=== PATIENT | female | born 1950 | race Caucasian/White ===

== ENCOUNTER 2021-05-03 08:34 | Outpatient (CLI) | payer MEDICARE | END 2021-05-03 08:35 | disposition home or self-care (01) | LOC: RAD 08:34 | PROVIDERS: ATTEND Internal Medicine Gastroenterology | DX: K59.00 Constipation, unspecified (principal); R10.9 Unspecified abdominal pain | CPT/HCPCS: 74280 ==

== ENCOUNTER 2021-06-04 22:41 | Inpatient (IN) | payer MEDICARE ==
[~2021-06-04 22:41] MED LIST: Iopamidol-370 76% 500 ML 1 ML ONE
[2021-06-04 23:05] LABS: #Eosinphils 0.1 thou/uL (0.0-0.7); #Lymphocytes 2.7 thou/uL (1.20-3.40); #Monocytes 0.6 thou/uL (0.11-0.59); #Neutrophils 3.3 thou/uL (1.40-6.50); %Basophils 0.4 % (0.0-1.0); %Eosinophils 2.1 % (0.0-10.0); %Lymphocytes 40.1 % (21.0-51.0); %Monocytes 8.7 % (0.0-10.0); %Neutrophils 48.7 % (42.0-75.0); Hemoglobin 12.6 g/dL (12.0-16.0); Mean Corpuscular HGB CONC 34.6 g/dL (32.0-36.0); Mean Corpuscular Hemoglobin 31.1 pg (27.0-31.0); Mean Corpuscular Volume 90.1 fL (78.0-98.0); Platelet Count 217 thou/uL (130-400); RBC Distribution Width 12.4 % (11.5-14.5); Red Blood Cell (RBC) Count 4.05 mill/uL (4.20-5.40); White Blood Cell (WBC) Count 6.8 thou/uL (4.8-10.8)
[2021-06-04 23:19] LABS: ALT (SGPT) 41 U/L (8-55); AST (SGOT) 39 U/L (5-34); Albumin 3.9 g/dL (3.4-4.8); Alkaline Phosphatase 64 U/L (40-110); Anion Gap 15 mmol/L (10-20); BUN (Urea Nitrogen) 15 mg/dL (9.8-20.1); Bilirubin, Total 0.3 mg/dL (0.2-1.2); Calc. Creatinine Clearance 0 mL/min (70-130); Calcium 9.3 mg/dL (7.8-10.44); Carbon Dioxide 23 mmol/L (23-31); Chloride 103 mmol/L (98-107); Glucose 253 mg/dL (80-115); Potassium 4.2 mmol/L (3.5-5.1); Protein, Total 6.9 g/dL (5.8-8.1); Sodium 137 mmol/L (136-145)
[2021-06-04 23:22] LABS: PTT 27.6 sec (22.9-36.1); Prothrombin Time 13.4 sec (12.0-14.7)
[2021-06-05] MEDS ORDERED: Aspirin Chewable 81 MG TAB ONE (00:17)
[2021-06-05 01:30] VITALS: BMI 27.5
[2021-06-05 02:17] LABS: Troponin I Less than 0.010 ng/mL (< 0.028)
[2021-06-05] MEDS ORDERED: Dextrose 5% in Water 1,000 ML IV PRN (03:43)
[2021-06-05] MEDS ORDERED: HumaLOG 300 UNITS/3 ML VIAL SC PRN ×2 (03:43)
[2021-06-05] MEDS ORDERED: Dextrose 50% Abboject 50 ML SYRINGE SLOW IVP PRN (03:43)
[2021-06-05] MEDS ORDERED: Senokot S 8.6-50 MG TAB PO PRN (03:45)
[2021-06-05] MEDS ORDERED: Ondansetron ODT 4 MG TAB PO PRN (03:45)
[2021-06-05] MEDS ORDERED: Acetaminophen 325 MG TAB PO PRN (03:45)
[2021-06-05] MEDS ORDERED: hydrALAZINE 20 MG/ML VIAL SLOW IVP PRN (03:46)
[2021-06-05] MEDS: Sodium Chloride 0.9% 1,000 ML IV SCH ×2 (04:29→16:41)
[2021-06-05 06:34] LABS: Cardiac Risk 6.2 (Less than 4.5)
[2021-06-05 06:47] LABS: Troponin I Less than 0.010 ng/mL (< 0.028)
[2021-06-05] MEDS ORDERED: traMADol HCl 50 MG TAB PO PRN (08:14)
[2021-06-05] MEDS ORDERED: Fluticasone Propionate Nasal Spray 16 gm Bottle NASAL PRN (08:14)
[2021-06-05] MEDS ORDERED: Nitroglycerin 0.4 MG TAB (25 Tab Bottle) SL PRN (08:15)
[2021-06-05] MEDS ORDERED: Glimepiride 4 MG TAB PO SCH (08:45)
[2021-06-05] MEDS ORDERED: Levothyroxine Sodium 100 MCG TAB PO SCH (08:45)
[2021-06-05] MEDS ORDERED: HumaLOG 300 UNITS/3 ML VIAL SC SCH (09:00)
[2021-06-05 09:40] LABS: Bacteria/HPF None Seen HPF (None Seen); Bilirubin Negative (Negative); Blood, Urine Negative (Negative); Clarity Clear (Clear); Glucose, Urine (Dipstick) Normal (Negative); Ketone, Urine Negative (Negative); Leukocyte Negative Leu/uL (Negative); Nitrite Negative (Negative); Protein, Urine (Dipstick) Negative (Neg-Trace); RBC/HPF 0-3 HPF (0-3); Specific Gravity, Urine 1.014 (1.002-1.036); Squamous Epithelial 0-3 HPF (0-3); Urobilinogen Normal mg/dL (Less than 2); WBC/HPF 0-3 HPF (0-3); pH, Urine 5.5 (5.0-9.0)
[2021-06-05 09:44] LABS: Urine Culture Reflex No No
[2021-06-05] MEDS: Loratadine 10 MG TAB PO SCH (10:06)
[2021-06-05] MEDS: Gabapentin 300 MG CAP PO SCH ×3 (10:06→22:11)
[2021-06-05] MEDS: DULoxetine 60 MG CAP PO SCH (10:06)
[2021-06-05] MEDS: Clopidogrel Bisulfate 75 MG TAB PO SCH (10:06)
[2021-06-05] MEDS: tiZANidine HCl 4 MG TAB PO SCH ×3 (10:07→22:12)
[2021-06-05] MEDS: Lantus 1000 UNITS/10 ML VIAL SC SCH (10:11)
[2021-06-05] MEDS: HumaLOG 300 UNITS/3 ML VIAL SC SCH ×2 (11:29→17:41)
[2021-06-05 11:49] LABS: SARS-CoV-2 PCR by NAA Not Detected (NotDetected)
[2021-06-05] MEDS: Gemfibrozil 600 MG TAB PO SCH (16:38)
[2021-06-05] MEDS: Glimepiride 4 MG TAB PO SCH (16:38)
[2021-06-05] MEDS ORDERED: Lisinopril 5 MG TAB PO SCH (18:00)
[2021-06-05] MEDS: traZODone HCl 50 MG TAB PO SCH (22:11)
[2021-06-05] MEDS: Atorvastatin Calcium 40 MG TAB PO SCH (22:11)
[2021-06-06 05:43] LABS: #Eosinphils 0.1 thou/uL (0.0-0.7); #Lymphocytes 2.2 thou/uL (1.20-3.40); #Monocytes 0.7 thou/uL (0.11-0.59); #Neutrophils 2.7 thou/uL (1.40-6.50); %Basophils 0.8 % (0.0-1.0); %Eosinophils 2.4 % (0.0-10.0); %Lymphocytes 37.9 % (21.0-51.0); %Neutrophils 46.9 % (42.0-75.0); Hemoglobin 11.6 g/dL (12.0-16.0); Mean Corpuscular HGB CONC 31.8 g/dL (32.0-36.0); Mean Corpuscular Hemoglobin 29.1 pg (27.0-31.0); Mean Corpuscular Volume 91.6 fL (78.0-98.0); Platelet Count 213 thou/uL (130-400); RBC Distribution Width 12.6 % (11.5-14.5); Red Blood Cell (RBC) Count 3.97 mill/uL (4.20-5.40); White Blood Cell (WBC) Count 5.8 thou/uL (4.8-10.8)
[2021-06-06 06:07] LABS: Anion Gap 14 mmol/L (10-20); BUN (Urea Nitrogen) 17 mg/dL (9.8-20.1); Calc. Creatinine Clearance 73 mL/min (70-130); Calcium 9.2 mg/dL (7.8-10.44); Carbon Dioxide 22 mmol/L (23-31); Chloride 106 mmol/L (98-107); Glucose 139 mg/dL (80-115); Potassium 3.9 mmol/L (3.5-5.1); Sodium 138 mmol/L (136-145)
[2021-06-06] MEDS: Levothyroxine Sodium 100 MCG TAB PO SCH (06:20)
[2021-06-06] MEDS ORDERED: Lisinopril 5 MG TAB PO SCH (09:00)
[2021-06-06] MEDS: Glimepiride 4 MG TAB PO SCH ×2 (09:09→15:57)
[2021-06-06] MEDS: Loratadine 10 MG TAB PO SCH (09:09)
[2021-06-06] MEDS: Gemfibrozil 600 MG TAB PO SCH ×2 (09:09→15:57)
[2021-06-06] MEDS: Aspirin 81 mg Enteric Coated Tablet PO SCH (09:09)
[2021-06-06] MEDS: Clopidogrel Bisulfate 75 MG TAB PO SCH ×2 (09:09→12:36)
[2021-06-06] MEDS: tiZANidine HCl 4 MG TAB PO SCH ×3 (09:09→20:21)
[2021-06-06] MEDS: DULoxetine 60 MG CAP PO SCH (09:10)
[2021-06-06] MEDS: Gabapentin 300 MG CAP PO SCH ×3 (09:10→20:22)
[2021-06-06] MEDS: HumaLOG 300 UNITS/3 ML VIAL SC SCH ×3 (09:21→17:34)
[2021-06-06] MEDS: Lantus 1000 UNITS/10 ML VIAL SC SCH (09:22)
[2021-06-06] MEDS ORDERED: Sodium Chloride 0.9% 500 ML IV SCH (12:30)
[2021-06-06] MEDS: traZODone HCl 50 MG TAB PO SCH (20:21)
[2021-06-06] MEDS: Apixaban 5 MG TAB PO SCH (20:21)
[2021-06-06] MEDS: Atorvastatin Calcium 40 MG TAB PO SCH (20:23)
[2021-06-06] MEDS ORDERED: Amitriptyline HCl 25 MG TAB PO SCH (21:00)
[2021-06-07] MEDS: Levothyroxine Sodium 100 MCG TAB PO SCH (05:27)
[2021-06-07] MEDS: Apixaban 5 MG TAB PO SCH (09:15)
[2021-06-07] MEDS: Loratadine 10 MG TAB PO SCH (09:15)
[2021-06-07] MEDS: Aspirin 81 mg Enteric Coated Tablet PO SCH (09:15)
[2021-06-07] MEDS: DULoxetine 60 MG CAP PO SCH (09:15)
[2021-06-07] MEDS: tiZANidine HCl 4 MG TAB PO SCH (09:15)
[2021-06-07] MEDS: Gemfibrozil 600 MG TAB PO SCH (09:16)
[2021-06-07] MEDS: Gabapentin 300 MG CAP PO SCH (09:16)
[2021-06-07] MEDS: Glimepiride 4 MG TAB PO SCH (09:16)
[2021-06-07] MEDS: HumaLOG 300 UNITS/3 ML VIAL SC SCH ×2 (09:51→10:49)
[2021-06-07] MEDS: Lantus 1000 UNITS/10 ML VIAL SC SCH (10:47)
[2021-06-07 12:07] VITALS: TEMP 97.9
[2021-06-07 14:10] VITALS: BP 128/80
== END 2021-06-07 14:07 | disposition home or self-care (01) | DRG 69 ==
LOC: ERS 22:41 → NEURO 23:57
PROVIDERS: ADMIT Student in an Organized Health Care Education/Training Program; ATTEND Student in an Organized Health Care Education/Training Program
PROC: 4A10X4Z Monitoring of Central Nervous Electrical Activity, External Approach (ICD-10-PCS; principal; 2021-06-05)
DX: G45.9 Transient cerebral ischemic attack, unspecified (principal); I48.20 Chronic atrial fibrillation, unspecified; E78.5 Hyperlipidemia, unspecified; E78.00 Pure hypercholesterolemia, unspecified; I25.10 Atherosclerotic heart disease of native coronary artery without angina pectoris; G47.33 Obstructive sleep apnea (adult) (pediatric); E11.9 Type 2 diabetes mellitus without complications; E03.9 Hypothyroidism, unspecified; I10 Essential (primary) hypertension; J45.909 Unspecified asthma, uncomplicated; I95.9 Hypotension, unspecified; Z20.822 Contact with and (suspected) exposure to COVID-19; Z95.5 Presence of coronary angioplasty implant and graft; Z90.710 Acquired absence of both cervix and uterus; Z98.51 Tubal ligation status; I25.2 Old myocardial infarction; Z90.49 Acquired absence of other specified parts of digestive tract; Z95.1 Presence of aortocoronary bypass graft; Z88.8 Allergy status to other drugs, medicaments and biological substances; Z79.51 Long term (current) use of inhaled steroids; Z79.899 Other long term (current) drug therapy; Z79.82 Long term (current) use of aspirin; Z79.4 Long term (current) use of insulin
CPT/HCPCS: 36415; 36416; 70450; 70496; 70498; 70551; 80048; 80053; 80061; 81001; 83036; 84443; 84484; 85025; 85610; 85730; 93005; 93306; 95712; 95819; 95957; J1815; J7030; J7050; Q9967; U0003; U0005

== ENCOUNTER 2021-08-21 11:45 | Inpatient (IN) | payer MEDICARE, OTHER ==
[2021-08-22 11:06] VITALS: BMI 28.0
[2021-08-24] MEDS ORDERED: Fentanyl 250 MCG/5 ML VIAL ONE ×3 (08:15→12:49)
[2021-08-24] MEDS ORDERED: Midazolam HCl 2 mg/2 ml Vial ONE (08:15)
[2021-08-24] MEDS ORDERED: Lidocaine 1% (PF) 30 ML VIAL ONE (08:15)
[2021-08-24] MEDS ORDERED: Bupivacaine 0.5% 10 ML VIAL ONE (08:19)
[2021-08-24] MEDS ORDERED: GLYCOPYRROLATE/PF 0.2 MG/ML VIAL ONE (08:57)
[2021-08-24] MEDS ORDERED: Dexamethasone 20 MG/5 ML VIAL ONE (08:57)
[2021-08-24] MEDS ORDERED: Lidocaine 1% PF 5 ML VIAL ONE (08:57)
[2021-08-24] MEDS ORDERED: Labetalol HCl 100 MG/20 ML VIAL ONE (08:57)
[2021-08-24] MEDS ORDERED: PROPOFOL 200 MG/20 ML VIAL ONE (08:57)
[2021-08-24] MEDS ORDERED: PHENYLEPHRINE-NS 100 MCG/ML 10 ML SYRINGE ONE (08:57)
[2021-08-24] MEDS ORDERED: Rocuronium Bromide 10 MG/ML (10ML VIAL) ONE (08:57)
[2021-08-24] MEDS ORDERED: Ketamine 50 MG/ML (10ML VIAL) ONE (09:12)
[2021-08-24] MEDS ORDERED: Albumin 5% 500 ML ONE (09:13)
[2021-08-24] MEDS ORDERED: Phenylephrine 10 MG/ML VIAL ONE (09:13)
[2021-08-24] MEDS ORDERED: Bupivacaine HCl 0.5%/Epinephrine 1:200,000/PF 30 ml Vial ONE (09:15)
[2021-08-24] MEDS ORDERED: cefOXitin 2 GM VIAL ONE (09:20)
[2021-08-24] MEDS ORDERED: Sodium Chloride 0.9% 100 ML ONE (09:20)
[2021-08-24] MEDS ORDERED: Promethazine HCl 25 MG/ML VIAL IVPB PRN (09:54)
[2021-08-24] MEDS ORDERED: Naloxone HCl 0.4 mg/ml Vial IV PRN (09:54)
[2021-08-24] MEDS ORDERED: Promethazine HCl 25 MG/ML VIAL IM PRN ×3 (09:54→12:19)
[2021-08-24] MEDS ORDERED: diphenhydrAMINE 50 MG/ML VIAL IM PRN (09:54)
[2021-08-24] MEDS ORDERED: fentaNYL Citrate/PF 2,000 MCG in Sodium Chloride 0.9% 60 ML IV PRN (09:54)
[2021-08-24] MEDS ORDERED: Ondansetron HCl/PF 4 MG/2 ML Vial IVP PRN (09:54)
[2021-08-24] MEDS ORDERED: HYDROmorphone 2 MG/ML VIAL SLOW IVP PRN (09:54)
[2021-08-24] MEDS ORDERED: Communication Order-Pharmacy FS SCH (10:00)
[2021-08-24] MEDS ORDERED: ceFOXitin 1 GM VIAL ONE (10:55)
[2021-08-24] MEDS ORDERED: hydrALAZINE 20 MG/ML VIAL SLOW IVP PRN (12:19)
[2021-08-24] MEDS ORDERED: Ondansetron PF 4 MG/2 ML Vial IVP PRN (12:19)
[2021-08-24] MEDS ORDERED: D5 1/2 NS w/20 mEq KCL 1,000 ML IV SCH (12:19)
[2021-08-24] MEDS ORDERED: Ondansetron PF 4 MG/2 ML Vial ONE (12:25)
[2021-08-24] MEDS ORDERED: Albuterol Sulfate 2.5 mg/3 ml Neb NEB PRN (12:27)
[2021-08-24] MEDS ORDERED: Promethazine HCl 25 MG/ML VIAL ONE (12:35)
[2021-08-24] MEDS ORDERED: HumaLOG 300 UNITS/3 ML VIAL SC PRN (12:43)
[2021-08-24] MEDS ORDERED: Dextrose 50% Abboject 50 ML SYRINGE SLOW IVP PRN (12:43)
[2021-08-24] MEDS ORDERED: Dextrose 5% in Water 1,000 ML IV PRN ×2 (12:43→13:00)
[2021-08-24] MEDS ORDERED: Insulin Regular 300 UNITS/3 ML VIAL ONE (12:46)
[2021-08-24] MEDS ORDERED: Dextrose 50% Abboject 50 ML SYRINGE IVP PRN (13:00)
[2021-08-24] MEDS: Sodium Chloride 0.9% 1,000 ML IV SCH ×2 (17:25→23:12)
[2021-08-24] MEDS: Ketorolac Tromethamine 30 MG/ML VIAL IVP PRN (17:25)
[2021-08-24] MEDS: Insulin Regular 300 UNITS/3 ML VIAL SC PRN ×2 (18:16→21:00)
[2021-08-24] MEDS: cefOXitin 2 GM in Sodium Chloride 0.9% 100 ML IVPB SCH (20:49)
[2021-08-24] MEDS: Amitriptyline HCl 25 MG TAB PO SCH (20:49)
[2021-08-24] MEDS: Famotidine 20 MG TAB PO SCH (20:49)
[2021-08-24] MEDS: Famotidine/PF 20 mg/2ml Vial SLOW IVP SCH (20:49)
[2021-08-24] MEDS: Zolpidem Tartrate 5 MG TAB PO PRN (20:54)
[2021-08-25] MEDS: Ketorolac Tromethamine 30 MG/ML VIAL IVP PRN (02:08)
[2021-08-25] MEDS: diphenhydrAMINE 50 MG/ML VIAL IVP PRN ×2 (02:22→17:32)
[2021-08-25] MEDS: Ondansetron PF 4 MG/2 ML Vial IVP PRN (02:22)
[2021-08-25] MEDS: cefOXitin 2 GM in Sodium Chloride 0.9% 100 ML IVPB SCH (02:57)
[2021-08-25 05:42] LABS: #Basophils 0.1 thou/uL (0.0-0.2); #Monocytes 0.9 thou/uL (0.11-0.59); #Neutrophils 8.7 thou/uL (1.40-6.50); %Basophils 0.5 % (0.0-1.0); %Eosinophils 0.1 % (0.0-10.0); %Lymphocytes 17.4 % (21.0-51.0); %Monocytes 7.3 % (0.0-10.0); %Neutrophils 74.7 % (42.0-75.0); Hemoglobin 10.6 g/dL (12.0-16.0); Mean Corpuscular Hemoglobin 31.8 pg (27.0-31.0); Mean Corpuscular Volume 93.5 fL (78.0-98.0); Mean Platelet Volume 6.6 fL (7.4-10.4); Platelet Count 208 thou/uL (130-400); Red Blood Cell (RBC) Count 3.34 mill/uL (4.20-5.40); White Blood Cell (WBC) Count 11.7 thou/uL (4.8-10.8)
[2021-08-25 06:06] LABS: Anion Gap 11 mmol/L (10-20); BUN (Urea Nitrogen) 9 mg/dL (9.8-20.1); Calc. Creatinine Clearance 76 mL/min (70-130); Calcium 7.9 mg/dL (7.8-10.44); Carbon Dioxide 22 mmol/L (23-31); Chloride 103 mmol/L (98-107); Glucose 163 mg/dL (80-115); Potassium 3.5 mmol/L (3.5-5.1); Sodium 132 mmol/L (136-145)
[2021-08-25] MEDS: Insulin Regular 300 UNITS/3 ML VIAL SC PRN ×3 (06:26→17:32)
[2021-08-25] MEDS: Sodium Chloride 0.9% 1,000 ML IV SCH ×3 (06:33→21:59)
[2021-08-25] MEDS: Famotidine 20 MG TAB PO SCH ×2 (09:05→20:02)
[2021-08-25] MEDS: Enoxaparin Sodium 40 MG/0.4 ML SYRINGE SC SCH (09:05)
[2021-08-25] MEDS: Famotidine/PF 20 mg/2ml Vial SLOW IVP SCH ×2 (09:37→20:48)
[2021-08-25] MEDS: diphenhydrAMINE 25 MG CAP PO PRN ×3 (09:47→21:59)
[2021-08-25] MEDS ORDERED: Cepastat Lozenges 1 LOZ PO PRN (11:11)
[2021-08-25] MEDS: Acetaminophen 500 MG TAB PO SCH ×3 (12:00→23:49)
[2021-08-25] MEDS ORDERED: Sodium Chloride 0.9% 1,000 ML IV SCH (13:30)
[2021-08-25] MEDS: Amitriptyline HCl 25 MG TAB PO SCH (20:02)
[2021-08-25] MEDS: Zolpidem Tartrate 5 MG TAB PO PRN (23:54)
[2021-08-26] MEDS: Acetaminophen 500 MG TAB PO SCH (05:43)
[2021-08-26] MEDS: Levothyroxine Sodium 100 MCG TAB PO SCH (05:43)
[2021-08-26 05:46] LABS: Anion Gap 13 mmol/L (10-20); BUN (Urea Nitrogen) 5 mg/dL (9.8-20.1); Calc. Creatinine Clearance 93 mL/min (70-130); Calcium 8.2 mg/dL (7.8-10.44); Carbon Dioxide 20 mmol/L (23-31); Chloride 108 mmol/L (98-107); Glucose 172 mg/dL (80-115); Potassium 3.2 mmol/L (3.5-5.1); Sodium 138 mmol/L (136-145)
[2021-08-26] MEDS: Sodium Chloride 0.9% 1,000 ML IV SCH ×2 (05:48→10:10)
[2021-08-26 05:56] LABS: #Lymphocytes 1.7 thou/uL (1.20-3.40); #Monocytes 0.8 thou/uL (0.11-0.59); #Neutrophils 7.3 thou/uL (1.40-6.50); %Basophils 0.2 % (0.0-1.0); %Eosinophils 0.5 % (0.0-10.0); %Lymphocytes 16.9 % (21.0-51.0); %Monocytes 8.2 % (0.0-10.0); %Neutrophils 74.2 % (42.0-75.0); Hemoglobin 9.6 g/dL (12.0-16.0); Mean Corpuscular HGB CONC 33.6 g/dL (32.0-36.0); Mean Corpuscular Hemoglobin 31.6 pg (27.0-31.0); Mean Corpuscular Volume 94.2 fL (78.0-98.0); Platelet Count 196 thou/uL (130-400); RBC Distribution Width 12.2 % (11.5-14.5); Red Blood Cell (RBC) Count 3.03 mill/uL (4.20-5.40); White Blood Cell (WBC) Count 9.8 thou/uL (4.8-10.8)
[2021-08-26] MEDS: Famotidine 20 MG TAB PO SCH ×2 (08:13→20:44)
[2021-08-26] MEDS: diphenhydrAMINE 25 MG CAP PO PRN ×2 (08:13→20:43)
[2021-08-26] MEDS: DULoxetine 30 MG CAP PO SCH (08:14)
[2021-08-26] MEDS: Famotidine/PF 20 mg/2ml Vial SLOW IVP SCH ×2 (08:14→20:44)
[2021-08-26] MEDS: Enoxaparin Sodium 40 MG/0.4 ML SYRINGE SC SCH (08:14)
[2021-08-26] MEDS ORDERED: Potassium Chloride 20 MEQ in Premix Bag 1 BAG IVPB SCH (08:15)
[2021-08-26] MEDS ORDERED: Morphine 4 MG/ML VIAL SLOW IVP PRN (09:39)
[2021-08-26] MEDS: Insulin Regular 300 UNITS/3 ML VIAL SC PRN ×2 (11:39→16:10)
[2021-08-26] MEDS: HYDROcodone/Acetaminophen 7.5/325 mg Tablet PO PRN (13:53)
[2021-08-26] MEDS: Acetaminophen 500 MG TAB PO PRN (16:06)
[2021-08-26] MEDS: Ondansetron PF 4 MG/2 ML Vial IVP PRN (16:07)
[2021-08-26] MEDS: Amitriptyline HCl 25 MG TAB PO SCH (20:44)
[2021-08-27] MEDS: Sodium Chloride 0.9% 1,000 ML IV SCH ×2 (00:01→09:59)
[2021-08-27] MEDS: Acetaminophen 500 MG TAB PO PRN ×3 (03:37→17:41)
[2021-08-27] MEDS: Levothyroxine Sodium 100 MCG TAB PO SCH (05:42)
[2021-08-27] MEDS: Insulin Regular 300 UNITS/3 ML VIAL SC PRN ×3 (06:50→17:40)
[2021-08-27] MEDS: diphenhydrAMINE 30 GM TUBE TOP PRN ×2 (08:43→15:06)
[2021-08-27] MEDS: DULoxetine 30 MG CAP PO SCH (08:45)
[2021-08-27] MEDS: Enoxaparin Sodium 40 MG/0.4 ML SYRINGE SC SCH (08:45)
[2021-08-27] MEDS: Famotidine/PF 20 mg/2ml Vial SLOW IVP SCH ×2 (08:45→20:10)
[2021-08-27] MEDS: Famotidine 20 MG TAB PO SCH ×2 (08:45→20:09)
[2021-08-27] MEDS: HYDROcodone/Acetaminophen 7.5/325 mg Tablet PO PRN ×3 (10:00→23:42)
[2021-08-27] MEDS: Amitriptyline HCl 25 MG TAB PO SCH (20:09)
[2021-08-28] MEDS: HYDROcodone/Acetaminophen 7.5/325 mg Tablet PO PRN ×3 (04:56→18:21)
[2021-08-28] MEDS: Sodium Chloride 0.9% 1,000 ML IV SCH (04:56)
[2021-08-28] MEDS: Levothyroxine Sodium 100 MCG TAB PO SCH (04:56)
[2021-08-28 05:23] LABS: #Eosinphils 0.2 thou/uL (0.0-0.7); #Monocytes 0.8 thou/uL (0.11-0.59); #Neutrophils 6.1 thou/uL (1.40-6.50); %Basophils 0.1 % (0.0-1.0); %Eosinophils 2.5 % (0.0-10.0); %Lymphocytes 22.2 % (21.0-51.0); %Monocytes 8.4 % (0.0-10.0); %Neutrophils 66.8 % (42.0-75.0); Hemoglobin 9.9 g/dL (12.0-16.0); Mean Corpuscular HGB CONC 33.3 g/dL (32.0-36.0); Mean Corpuscular Hemoglobin 31.4 pg (27.0-31.0); Mean Corpuscular Volume 94.2 fL (78.0-98.0); Mean Platelet Volume 6.4 fL (7.4-10.4); Platelet Count 279 thou/uL (130-400); RBC Distribution Width 12.4 % (11.5-14.5); Red Blood Cell (RBC) Count 3.15 mill/uL (4.20-5.40); White Blood Cell (WBC) Count 9.2 thou/uL (4.8-10.8)
[2021-08-28 06:37] LABS: Anion Gap 13 mmol/L (10-20); BUN (Urea Nitrogen) 4 mg/dL (9.8-20.1); Calc. Creatinine Clearance 95 mL/min (70-130); Calcium 8.5 mg/dL (7.8-10.44); Carbon Dioxide 24 mmol/L (23-31); Chloride 106 mmol/L (98-107); Glucose 130 mg/dL (80-115); Sodium 140 mmol/L (136-145)
[2021-08-28 06:38] LABS: Potassium 2.9 mmol/L (3.5-5.1)
[2021-08-28] MEDS: DULoxetine 30 MG CAP PO SCH (08:28)
[2021-08-28] MEDS: Famotidine/PF 20 mg/2ml Vial SLOW IVP SCH ×2 (08:29→20:40)
[2021-08-28] MEDS: Apixaban 5 MG TAB PO SCH ×2 (08:29→20:40)
[2021-08-28] MEDS: Famotidine 20 MG TAB PO SCH ×2 (08:29→20:40)
[2021-08-28] MEDS: Insulin Regular 300 UNITS/3 ML VIAL SC PRN ×2 (11:46→18:20)
[2021-08-28] MEDS: Amitriptyline HCl 25 MG TAB PO SCH (20:39)
[2021-08-28] MEDS: Zolpidem Tartrate 5 MG TAB PO PRN (20:45)
[2021-08-29] MEDS: HYDROcodone/Acetaminophen 7.5/325 mg Tablet PO PRN ×2 (02:26→08:23)
[2021-08-29] MEDS: Levothyroxine Sodium 100 MCG TAB PO SCH (04:54)
[2021-08-29] MEDS: Insulin Regular 300 UNITS/3 ML VIAL SC PRN ×2 (06:23→11:44)
[2021-08-29] MEDS: DULoxetine 30 MG CAP PO SCH (08:24)
[2021-08-29] MEDS: Famotidine 20 MG TAB PO SCH (08:24)
[2021-08-29] MEDS: Apixaban 5 MG TAB PO SCH (08:24)
[2021-08-29] MEDS: Famotidine/PF 20 mg/2ml Vial SLOW IVP SCH (08:24)
[2021-08-29 12:01] VITALS: BP 154/81; TEMP 98.8
== END 2021-08-29 13:21 | disposition home or self-care (01) | DRG 330 ==
LOC: SURG A 08-24 06:42 → EDSTATUS 08-27 11:45
PROVIDERS: ADMIT Surgery; ATTEND Surgery
PROC: 0DBN0ZZ Excision of Sigmoid Colon, Open Approach (ICD-10-PCS; principal; 2021-08-24)
PROC: 0DNW0ZZ Release Peritoneum, Open Approach (ICD-10-PCS; 2021-08-24)
PROC: 0DJW4ZZ Inspection of Peritoneum, Percutaneous Endoscopic Approach (ICD-10-PCS; 2021-08-24)
PROC: 3E0T3BZ Introduction of Anesthetic Agent into Peripheral Nerves and Plexi, Percutaneous Approach (ICD-10-PCS; 2021-08-24)
DX: K57.32 Diverticulitis of large intestine without perforation or abscess without bleeding (principal); K56.50 Intestinal adhesions [bands], unspecified as to partial versus complete obstruction; K56.7 Ileus, unspecified; Z53.31 Laparoscopic surgical procedure converted to open procedure
CPT/HCPCS: 36415; 36416; 80048; 85025; 88307; 88309; 93005; 93010; A4649; C1776; J0360; J0694; J1100; J1200; J1650; J1815; J1885; J2001; J2250; J2370; J2405; J2550; J2704; J3010; J3480; J3490; J7050; P9045

== ENCOUNTER 2021-08-21 15:45 | Outpatient (CLI) | payer MEDICARE, OTHER ==
[2021-08-21 16:39] LABS: #Eosinphils 0.1 10x3/uL (0.0-0.5); #Monocytes 0.6 10x3/uL (0.0-1.1); #Neutrophils 3.6 10x3/uL (1.5-8.4); %Basophils 0.3 % (0.0-2.0); %Eosinophils 1.1 % (0.0-6.0); %Lymphocytes 34.4 % (18.0-47.0); %Monocytes 9.1 % (0.0-10.0); %Neutrophils 54.6 % (40.0-75.0); Hemoglobin 13.4 g/dL (12.0-15.5); Mean Corpuscular HGB CONC 32.8 g/dL (32.0-36.0); Mean Corpuscular Hemoglobin 30.1 pg (27.0-33.0); Mean Corpuscular Volume 91.9 fl (81.6-98.3); Platelet Count 240 10x3/uL (150-450); Red Blood Cell (RBC) Count 4.45 10x6/uL (3.90-5.03); White Blood Cell (WBC) Count 6.5 10x3/uL (3.5-10.5)
[2021-08-21 17:17] LABS: Anion Gap 16 mmol/L (10-20); BUN (Urea Nitrogen) 13 mg/dL (9.8-20.1); Calc. Creatinine Clearance 0 mL/min (70-130); Calcium 9.9 mg/dL (7.8-10.44); Carbon Dioxide 26 mmol/L (23-31); Chloride 101 mmol/L (98-107); Glucose 142 mg/dL (80-115); Potassium 4.1 mmol/L (3.5-5.1); Sodium 139 mmol/L (136-145)
[2021-08-21 19:51] LABS: Hemoglobin A1c 8.3 % (4.0-6.0)
[2021-08-22 03:09] LABS: SARS-CoV-2 PCR by NAA Not Detected (NotDetected)
== END 2021-08-21 15:46 | disposition home or self-care (01) ==
LOC: LABBT 15:45
PROVIDERS: ATTEND Surgery
DX: Z01.812 Encounter for preprocedural laboratory examination (principal); K56.699 Other intestinal obstruction unspecified as to partial versus complete obstruction; Z20.822 Contact with and (suspected) exposure to COVID-19
CPT/HCPCS: 80048; 83036; 85025; U0003; U0005

== ENCOUNTER 2022-07-10 07:47 | Outpatient (CLI) | payer MEDICARE, OTHER | END 2022-07-10 07:48 | disposition home or self-care (01) | LOC: NM 07:47 | PROVIDERS: ATTEND Psychiatry & Neurology Neurology | DX: R25.1 Tremor, unspecified (principal) | CPT/HCPCS: 78803; A9584 ×2 ==